=== PATIENT | female | born 1945 | race Caucasian/White ===

== ENCOUNTER 2018-12-18 09:46 | Emergency (ER) | payer BC ==
[2018-12-18 10:11] VITALS: BP 128/90
--- NOTE | 2018-12-18 10:51 | UC ---
Abdominal Pain Female HPI - HPI Summary HPI Summary: 73 year old female with PMH + for ? IBS, breast cancer in remission, presents with abdominal pain, RLQ, x 1-2 days. Patient states had loose stools on Monday, which occurs ~ 4 times a year for her, took 1 immodium, her typical treatment, which cured symptoms, No other symptoms, denies n/V/C/ fever, chills , abdominal pain. patient states feeling fine until yesterday- had abdominal bloating, increased pain. no n/v/f/chills. s/p appy. urine- noted cloudy urine x 2-3 weeks, no pain, urgency, frequency. - History of Current Complaint Chief Complaint: UCAbdominalPain Stated Complaint: ABD / BACK PAIN Time Seen by Provider: 12/18/18 10:14 Hx Obtained From: Patient ?: No Onset/Duration: Sudden Onset, Lasting Days Timing: Constant Severity Initially: Mild Severity Currently: Mild Pain Intensity: 4 Pain Scale Used: 0-10 Numeric Allergies/Adverse Reactions: Allergies Allergy/AdvReac Type Severity Reaction Status Date / Time Iodinated Contrast Media Allergy Hives Verified 12/18/18 09:55 chlorine Allergy Rash Uncoded 12/18/18 09:55 Home Medications: Home Medications Amlodipine Besylate/Benazepril [Amlodipine-Benazepril 5-20 mg] 1 each PO DAILY 12/18/18 [History Confirmed 12/18/18] Anastrozole [Arimidex] 1 mg PO DAILY 12/18/18 [History Confirmed 12/18/18] Calcium Carbonate [Calcium] 1,200 mg PO DAILY 12/18/18 [History Confirmed ] PMH/Surg Hx/FS Hx/Imm Hx Previously Healthy: No - breast CA Cancer History: Breast Cancer - remission - Surgical History Surgical History: Yes Surgery Procedure, Year, and Place: hysterectomy, R wrist fx, breast lumpectomy x3, appendectomy, eye surgery x3. - Social History Alcohol Use: Daily Alcohol Amount: 2 glasses every day Substance Use Type: None Smoking Status (MU): Never Smoked Tobacco - Immunization History Most Recent Tetanus Shot: Review of Systems All Other Systems Reviewed And Are Negative: Yes Constitutional: Positive: Negative Respiratory: Positive: Negative Cardiovascular: Positive: Negative Gastrointestinal: Positive: Abdominal Pain. Negative: Vomiting, Diarrhea, Nausea Genitourinary: Negative: Dysuria, Hematuria, Frequency, Urgency, Vaginal/Penile Discharge, Vaginal/Penile Pain, Vaginal/Penile Tenderness, Ulceration/Lesion, Abnormal Bleeding Musculoskeletal: Negative: Arthralgia, Decreased ROM, Edema, Myalgia Psychological: Positive: Negative Is Patient Immunocompromised?: No - not on chemo/ rads Physical Exam Triage Information Reviewed: Yes Appearance: Well-Appearing, No Pain Distress, Well-Nourished Vital Signs: Initial Vital Signs Temp 98.4 F 12/18/18 10:01 Pulse 95 12/18/18 10:01 Resp 16 12/18/18 10:01 BP 128/90 12/18/18 10:01 Pulse Ox 98 12/18/18 10:01 Vital Signs Reviewed: Yes Eyes: Positive: Conjunctiva Clear ENT: Positive: Pharynx normal Respiratory: Positive: Chest non-tender, Lungs clear, Normal breath sounds, No respiratory distress, No accessory muscle use Cardiovascular: Positive: RRR, No Murmur Abdomen Description: Positive: No Organomegaly, Soft, Other: - mild TTP suprapubic, LLQ. Negative: CVA Tenderness (R), CVA Tenderness (L), Distended, Guarding Bowel Sounds: Positive: Present Musculoskeletal Exam: Normal Skin Exam: Normal Abd Pain Female Course/Dx - Course Course Of Treatment: KUB- negative - If abdominal pain worsens, follow up in ER - Motrin /tylenol as needed for symptoms - FOllow up with primary physician within 7-10 days for repeat Urine check - Go to ER with increased pain, fever, chills. - ANtibiotics as directed - Differential Dx/Diagnosis Differential Diagnosis: Diverticulitis, Urinary Tract Infection Provider Diagnosis: UTI (urinary tract infection) Discharge ED - Sign-Out/Discharge Documenting (check all that apply): Patient Departure All imaging exams completed and their final reports reviewed: Yes - Discharge Plan Condition: Good Disposition: HOME Prescriptions: Nitrofurantoin Monohyd/M-Cryst [Macrobid 100 mg Capsule] 100 mg PO BID #10 cap Patient Education Materials: Urinary Tract Infection in Women (ED) Referrals: Tiffanie Nugent MD [Primary Care Provider] - Additional Instructions: - If abdominal pain worsens, follow up in ER - Motrin /tylenol as needed for symptoms - FOllow up with primary physician within 7-10 days for repeat Urine check - Go to ER with increased pain, fever, chills. - ANtibiotics as directed - Billing Disposition and Condition Condition: GOOD Disposition: Home
== END 2018-12-18 11:26 | disposition home or self-care (01) ==
LOC: UCEAST 09:46
DX: R10.31 Right lower quadrant pain (principal); Z91.09 Other allergy status, other than to drugs and biological substances; Z91.041 Radiographic dye allergy status; Z85.3 Personal history of malignant neoplasm of breast
CPT/HCPCS: 74018; 81003; 87077; 87086; 87186; 99212; G0463